=== PATIENT | female | born 1980 | race Caucasian/White ===

== ENCOUNTER → 2019-12-11 11:02 | Outpatient (CLI) | payer OTHER, SELFPAY ==
--- NOTE | ~2019-12-11 | US_ITS ---
EXAMINATION: US thyroid DATE: 12/11/2019 11:18 INDICATION: Thyroid nodule. TECHNIQUE: Multiple ultrasound images of the thyroid were obtained. COMPARISON: None. FINDINGS: The right thyroid lobe measures 5.4 x 1.4 x 1.5 cm. The left thyroid lobe measures 4.4 x 1.3 x 1.2 c m. In the left thyroid lobe, there is a 6 mm solid, hypoechoic, [id number] nodule with smooth m argin without echogenic foci (TI-RADS TR4). IMPRESSION: 1. Small thyroid nodule, likely not clinically significant. No follow-up is needed. Reviewed, dictated and finalized at location A. STANT PROFESSOR OF MATHEMATICS IMPRESSION: 1. Small thyroid nodule, likely not clinically significant. No follow-up is nee ded.
== END ==
PROVIDERS: Visit Provider Internal Medicine Endocrinology, Diabetes & Metabolism
DX: E04.1 Nontoxic single thyroid nodule (principal)
CPT/HCPCS: 76536

== ENCOUNTER → 2020-06-25 07:28 | Outpatient (CLI) | payer OTHER, SELFPAY ==
--- NOTE | ~2020-06-25 | US_ITS ---
EXAMINATION: US pelvic complete DATE: 06/25/2020 07:52 INDICATION: Fibroid uterus. Comparison:12/02/2018 TECHNIQUE: Multiple transabdominal sonographic images of the pelvis performed. FINDINGS: The uterus measures 9.4 x 5.5 x 7 cm. There are multiple uterine fibroids throughout the ut erus. The endometrial complex measures 4 mm. The right ovary measures 3.1 x 1.3 x 2.2 cm and the left ovary measures 3.9 x 2.9 x 3.2 cm. There is a left adnexal cyst measuring 2.7 x 2.2 x 2.1 cm. There is no free fluid in the pelvis. There are no abnormal masses seen on either side. IMPRESSION: 1. Mildly enlarged fibroid uterus. 2: 2.7 cm left ovarian cyst. Reviewed, dictated and finalized at location A.
== END ==
PROVIDERS: Visit Provider Obstetrics & Gynecology Gynecology
DX: D25.9 Leiomyoma of uterus, unspecified (principal); N83.202 Unspecified ovarian cyst, left side
CPT/HCPCS: 76856

== ENCOUNTER → 2020-11-02 08:31 | Outpatient (CLI) | payer OTHER, SELFPAY ==
--- NOTE | ~2020-11-02 | XR_ITS ---
EXAMINATION: XR abdomen/kub 1V DATE: 11/02/2020 09:47 INDICATION: Hematuria. TECHNIQUE: A supine view of the abdomen on 2 radiographs was obtained. COMPARISON: CT abdomen and pelvis 11/02/2020 FINDINGS: There are no dilated loops of bowel. There is no urolithiasis. There are phleboliths in the pelvis. IMPRESSION: 1. No urolithiasis. Reviewed, dictated and finalized at location B. NIGHT HOUSEPERSON IMPRESSION: 1. No urolithiasis.
--- NOTE | ~2020-11-02 | CT_ITS ---
EXAMINATION: CT abdomen pelvis wo/w con DATE: 11/02/2020 09:47 INDICATION: Microscopic hematuria. TECHNIQUE: Computed tomography (CT) of the abdomen and pelvis was performed without and with intraven ous contrast using a total of 130 mL Omnipaque-350 intravenous contrast with a double-bolus technique for simultaneous opacification of the renal parenchyma and renal collecting system. Automated exposu re control and iterative reconstruction technique were employed. The dose-length product was 1186.09 mGy-cm. COMPARISON: CT abdomen and pelvis 01/14/2019 FINDINGS: The visualized portions of the lung bases demonstrate a calcified right lower lobe nodule, consistent with old granulomatous disease. No pleural effusion. The heart size is normal. No pericardial effusi on. The liver, gallbladder, spleen, pancreas, adrenal glands, and kidneys are normal. There is no uro lithiasis. Right ureter is well opacified and is normal. Left ureter is not well-opacified distally, but is normal. The bladder is not well-distended. There is a 13 mm hemorrhagic cyst in the vulva on t he left without change. There are no dilated loops of bowel. The appendix is normal. Vertebral body h eights are normal. There is no free intraperitoneal fluid. The bones are unremarkable. IMPRESSION: 1. No etiology for hematuria. Reviewed, dictated and finalized at location B. SPECIALIST
[2020-11-02 08:51] LABS: Estimated Glomerular Filt Rate > 60
== END ==
PROVIDERS: PCP Emergency Medicine; Visit Provider Urology
DX: R31.29 Other microscopic hematuria (principal)
CPT/HCPCS: 74018; 74178; Q9967

== ENCOUNTER → 2020-11-11 08:05 | Outpatient (CLI) | payer OTHER, SELFPAY ==
--- NOTE | ~2020-11-11 | MMUS_ITS ---
EXAMINATION: MM diagnostic roseanne BI w [place], US breast BI complete HISTORY: Left breast pain and palpable lump nodule TECHNIQUE: Additional 3-D tomosynthesis images of the breasts were performed and synthetic 2-D images were generated. CAD analysis was submitted and interpreted. High resolution complete bilateral breas t ultrasound was performed. COMPARISON: 01/14/2019 BREAST PARENCHYMAL COMPOSITION: The breasts are extremely dense, which lowers the sensitivity of mamm ography. FINDINGS: MAMMOGRAPHIC FINDINGS: There are no suspicious masses or architectural distortion. There are stable benign-appearing bilater al breast calcifications. ULTRASOUND: Bilateral complete breast ultrasound including all 4 quadrants in the subareolar locations: There are multiple bilateral breast cysts. There is a cluster of microcysts in the left breast at 3:00, 6 cm f rom the nipple measuring 7 mm greatest dimension. No suspicious masses to suggest malignancy. IMPRESSION: 1. No evidence for malignancy in either breast. Benign findings. 2. Routine yearly screening mammogram and regular clinical breast examination are recommended. BI-RADS Category 2: Benign finding(s). Reviewed, dictated and finalized at location A. IENCE TRAINER IMPRESSION: 1. No evidence for malignancy in either breast. Benign findings. 2. Routine yearly screening mammogram and regular clinical breast examination a re recommended. BI-RADS Category 2: Benign finding(s).
== END ==
PROVIDERS: PCP Emergency Medicine; Visit Provider Nurse Practitioner
DX: N64.4 Mastodynia (principal)
CPT/HCPCS: 76641; 77062; 77066; G0279

== ENCOUNTER → 2021-11-21 07:52 | Outpatient (CLI) | payer OTHER, SELFPAY ==
--- NOTE | ~2021-11-21 | US_ITS ---
EXAMINATION: US thyroid EXAM DATE: 11/21/2021 08:11 INDICATION: Delmis's thyroiditis TECHNIQUE: Multiple grayscale and Doppler images of the thyroid were obtained (by a technologist who performed the scan) and subsequently reviewed. Individual nodules and recommendations may be reporte d in accordance with TI-RADS system as designated by the 2017 ACR White Paper TI-RADS committee. Comp arison is made to prior examination from 12/11/2019. FINDINGS: The right thyroid lobe measures 5.5 x 1.4 x 1.5 cm, the left measuring 4.4 x 1.3 x 1.5 cm. There is r elatively homogeneous thyroid echogenicity with diffusely hypervascular parenchyma. Several subcentim eter thyroid nodules not significantly changed, largest measuring 7 mm in the left thyroid lobe. IMPRESSION: Mildly enlarged, hypervascular thyroid. Appearance consistent with Delmis's thyroiditi s. Reviewed, dictated and finalized at location B. GER PROGRESSIVE CARE IMPRESSION: Mildly enlarged, hypervascular thyroid. Appearance consistent with Delmis's thyroiditis.
== END ==
PROVIDERS: PCP Emergency Medicine; Visit Provider Emergency Medicine
DX: E06.3 Autoimmune thyroiditis (principal); E04.9 Nontoxic goiter, unspecified
CPT/HCPCS: 76536

== ENCOUNTER → 2021-12-30 07:56 | Outpatient (CLI) | payer OTHER, SELFPAY ==
--- NOTE | ~2021-12-30 | MM_ITS ---
EXAMINATION: MM screening roseanne BI w [place] HISTORY: Screening mammogram TECHNIQUE: Craniocaudal and mediolateral oblique 3-D tomosynthesis images were obtained and synthetic 2-D images were generated. CAD analysis was submitted and interpreted. COMPARISON: 11/11/2020 diagnostic bilateral mammogram and complete bilateral breast ultrasound examina tion BREAST PARENCHYMAL COMPOSITION: The breasts are extremely dense, which lowers the sensitivity of mamm ography. FINDINGS: Scattered bilateral benign calcifications. There is no evidence of suspicious mass, calcifi cation, or architectural distortion to suggest malignancy in either breast. There has been no suspici ous interval change. IMPRESSION: 1. No mammographic evidence of malignancy. 2. Recommend routine screening mammography in one year. BI-RADS Category 2: Benign finding(s). Reviewed, dictated and finalized at location A.
== END ==
PROVIDERS: Visit Provider Obstetrics & Gynecology Gynecology
DX: Z12.31 Encounter for screening mammogram for malignant neoplasm of breast (principal)
CPT/HCPCS: 77063; 77067

== ENCOUNTER → 2022-02-20 08:26 | Outpatient (CLI) | payer OTHER, SELFPAY ==
--- NOTE | ~2022-02-20 | US_ITS ---
US breast BI complete 02/20/2022 09:09 Indication: Family history of breast cancer. Recent negative screening mammogram. Procedure: High-resolution complete bilateral breast ultrasound including all 4 quadrants in the suba reolar location of both breasts. Comparison: Ultrasound dated 11/11/2020 and mammograms dated 12/30/2021 and 11/11/2020 Findings: Right breast: At 3:00, 1 cm from the nipple, there is a 5 mm cyst. At 10:00, 3 cm from the nipple, th ere is a 5 mm cyst. Left breast: At 1:00, 2 cm from the nipple, there is a solid-appearing oval hypoechoic mass with para llel orientation, no internal vascularity and no significant posterior features. This mass measures 1 2 x 6 x 10 mm. At 3:00, 5 cm from the nipple, there is an oval hypoechoic mass measuring 11 x 9 x 3 m m with small internal cysts and possible calcifications. No internal vascularity. There is posterior acoustic enhancement. Impression: 1: Small nonspecific masses of the left breast located at 1:00, 2 cm from the nipple measuring up to 12 mm and 3:00, 5 cm from the nipple measuring up to 11 mm. BI-RADS CATEGORY 4-SUSPICIOUS ABNORMALITY RECOMMENDATION: Ultrasound-guided left breast biopsies recommended given the family history of breast cancer. Reviewed, dictated and finalized at location A. Impression: 1: Small nonspecific masses of the left breast located at 1:00, 2 cm from the n ipple measuring up to 12 mm and 3:00, 5 cm from the nipple measuring up to 11 m m. BI-RADS CATEGORY 4-SUSPICIOUS ABNORMALITY RECOMMENDATION: Ultrasound-guided left breast biopsies recommended given the fa chavez history of breast cancer.
== END ==
PROVIDERS: PCP Emergency Medicine; Visit Provider Nurse Practitioner
DX: R92.8 Other abnormal and inconclusive findings on diagnostic imaging of breast (principal); N63.25 Unspecified lump in the left breast, overlapping quadrants; N60.01 Solitary cyst of right breast
CPT/HCPCS: 76641

== ENCOUNTER 2023-11-09 19:47 | Emergency (ER) | payer OTHER, SELFPAY ==
--- NOTE | 2023-11-09 19:56 | ECG_ITS ---
Measurements Intervals [place] Rate: 91 P: 80 [place]: 121 QRS: 82 QRSD: 84 T: 49 QT: 330 QTc: 406 Interpretive Statements SINUS RHYTHM MINIMAL Q WAVES- ANTEROLAT/INF LEADS BASELINE ARTIFACT- I, II, III, AVR, AVL, AVF BORDERLINE ECG NO PREVIOUS ECG AVAILABLE FOR COMPARISON Electronically Signed On 11-10-2023 7:58:21 SILICA MIXER OPERATOR by Umesh Hollingsworth D.O.
[2023-11-09 19:57] VITALS: BP 98/62; PULSE 111; RESP 16; TEMP 37.2; O2SAT 100
[2023-11-09] MEDS: MAG HYDROX/AL HYDROX/SIMETH 30 ML UDC PO (20:02)
[2023-11-09] MEDS: LIDOCAINE HCL 2% VISC SOLN 15 ML UDC PO (20:03)
--- NOTE | 2023-11-09 20:03 | ED.ABDPAIN ---
HPI - Abdominal Pain General Chief Complaint: Chest Pain Stated Complaint: CHEST PAIN/REFLUX Time Seen by Provider: 11/09/23 19:56 Source: patient and RN notes reviewed Mode of arrival: ambulatory Limitations: no limitations History of Present Illness HPI narrative: 43-year-old female presents with concern for epigastric pain. She reports that symptoms started this morning. She reports a burning sensation, reports belching. She reports she had been taking pantoprazole and Pepcid recently for reflux, reports she stopped taking it the last 2 days. Reports she took it this morning when her symptoms returned. She denies nausea, vomiting, diarrhea. Reports her these medications are prescribed by her primary care doctor, she has not seen a GI doctor. She denies cough, shortness of breath, left-sided checked pain, left arm pain MD elicited complaint: abdominal pain Related Data Home Medications Medication Instructions Recorded Confirmed famotidine 20 mg tablet 20 mg PO DAILY 11/09/23 11/09/23 lisdexamfetamine 30 mg capsule 30 mg PO DAILY 11/09/23 11/09/23 (Vyvanse) pantoprazole 40 mg tablet,delayed 40 mg PO DAILY 11/09/23 11/09/23 release Allergies Allergy/AdvReac Type Severity Reaction Status Date / Time No Known Allergies Allergy Mild Verified 11/09/23 19:57 Review of Systems Review of Systems: CONSTITUTIONAL: Denies malaise, chills, sweats, or fever. CARDIOVASCULAR: Denies chest pain, palpitations, or edema. RESPIRATORY: Denies cough or dyspnea. GASTROINTESTINAL: Reports epigastric abdominal pain and burning, belching. Denies nausea, vomiting, diarrhea, bloody, or mucous stools. MUSCULOSKELETAL: Denies myalgia. NEUROLOGIC: Denies headache. All systems reviewed & are unremarkable except as noted in HPI and below PMFSH Family History Family History Mother Hypertension Family history of malignant neoplasm of breast in first degree relative Social History Social History (Updated 12/10/22 @ 09:39 by Haritha Lee MA) Smoking status: Never smoker Lack of Transportation: No Lack of Food: Never True Current Housing: I Have Housing Concerned About Future Housing: No Difficulty Paying Gas/Electric Bills: No Difficulty Paying for Meds: No Currently Unemployed: No Education: Master's Degree or Higher Difficulty w/ Childcare or Family Care: No Comments At time of signature, agree with nursing past medical, surgical, social and family history. There is no relevant family history pertinent to the presenting complaint Exam Narrative: GENERAL: Well-appearing, well-nourished, and in no acute distress. HEAD: Normocephalic, atraumatic. EYES: PERRLA, conjunctivae clear, and EOMI. ENT: Nares clear, no rhinorrhea or epistaxis. Mucous membranes moist. Oropharynx without edema, erythema, or lesions. Tonsils not enlarged and without exudate. NECK: Supple. No lymphadenopathy CHEST: Speaks in full sentences. No respiratory distress. HEART: Regular rate and rhythm. ABDOMEN: Soft, flat, nondistended, nontender. No guarding, rebound tenderness, or rigidity. No pulsatile masses. Bowel sounds present in all four quadrants. No organomegaly. Negative Dhaliwal?s sign. No periumbilical tenderness. No Supra public tenderness or distension SKIN: Warm, dry, no rash. NEURO: Alert and oriented x3. PSYCH: Normal mood and affect Course Course Emergency Course: Patient is aware of, understands and agrees to treatment plan. Anticipatory guidance given. Patient agrees to follow-up as directed and is aware of reasons to seek care at the emergency department. Portions of this record may have been created with voice recognition software Level of Care: Express Care Visit Reevaluation(s) Reevaluation #1: Patient given GI cocktail, reports relief of esophageal burning. She reports her stomach still feels uncomfortable. Date: 11/09/23 Time: 20:16 Vital
--- NOTE | 2023-11-09 20:11 | PC.NURSE ---
2011 EKG completed, patient sitting in chair at this time; reports numbness to throat etc.
== END 2023-11-09 20:20 | disposition home or self-care (01) ==
PROVIDERS: Emergency Provider Nurse Practitioner; PCP Emergency Medicine
DX: R10.13 Epigastric pain (principal)
CPT/HCPCS: 93005; 99213; A9270; G0463

== ENCOUNTER 2023-11-10 07:25 | Emergency (ER) | payer OTHER, SELFPAY ==
--- NOTE | ~2023-11-10 | XR_ITS ---
EXAMINATION: XR chest 1V portable 11/10/2023 07:48 INDICATION: Chest pain. PROCEDURE: AP portable chest COMPARISON: 10/25/2019 FINDINGS: The lungs are clear. The lungs are hyperinflated which is consistent with, but not diagnost ic of chronic obstructive pulmonary disease. The cardiomediastinal silhouette is within normal limits . There are no pleural effusions. There is no pneumothorax suspected. IMPRESSION: 1: NO ACUTE CARDIOPULMONARY DISEASE. Reviewed, dictated and finalized at location A. LITIES ENGINEER
--- NOTE | 2023-11-10 07:29 | ECG_ITS ---
Measurements Intervals [place] Rate: 80 P: 81 CT: 119 QRS: 77 QRSD: 84 T: 58 QT: 332 QTc: 383 Interpretive Statements SINUS RHYTHM WITH SHORT CT INTERVAL POSSIBLE LEFT ATRIAL ENLARGEMENT LOW QRS VOLTAGE IN PRECORDIAL LEADS MINIMAL Q WAVES- INF/LAT LEADS BORDERLINE ECG COMPARED TO ECG 11/09/2023 20:07:18 NO SIGNIFICANT CHANGES Electronically Signed On 11-10-2023 11:29:04 TIME LOCK EXPERT by Umesh Hollingsworth D.O.
--- NOTE | 2023-11-10 07:54 | ED.GENADULT ---
HPI - General Adult General Chief complaint: Unspecified Stated complaint: heartburn Time Seen by Provider: 11/10/23 07:29 History of Present Illness HPI narrative: 43-year-old female with history of gastric reflux started approximately 2 months ago presented to the ED for evaluation of worsening epigastric and left upper quadrant pain. Patient states over last 24 hours she has had pretty persistent upper abdominal pain and pain with swallowing. Patient did have follow-up with urgent care yesterday and was treated with a GI cocktail and had an EKG. Patient states that the symptoms persisted this morning so she presented to the ED for evaluation. The patient states that she did have a negative H pylori study done approximately 2 weeks ago Patient is declining IV access IV labs and any additional workup. Patient prefers just to try the p.o. meds and see if those help. Related Data Home Medications Medication Instructions Recorded Confirmed famotidine 20 mg tablet 20 mg PO DAILY 11/09/23 11/09/23 lisdexamfetamine 30 mg capsule 30 mg PO DAILY 11/09/23 11/09/23 (Vyvanse) pantoprazole 40 mg tablet,delayed 40 mg PO DAILY 11/09/23 11/09/23 release Allergies Allergy/AdvReac Type Severity Reaction Status Date / Time No Known Allergies Allergy Mild Verified 11/10/23 07:37 Review of Systems Review of Systems: All systems reviewed & are unremarkable except as noted in HPI and below PMFSH Family History Family History Mother Hypertension Family history of malignant neoplasm of breast in first degree relative Social History Social History (Updated 12/10/22 @ 09:39 by Haritha Lee MA) Smoking status: Never smoker Lack of Transportation: No Lack of Food: Never True Current Housing: I Have Housing Concerned About Future Housing: No Difficulty Paying Gas/Electric Bills: No Difficulty Paying for Meds: No Currently Unemployed: No Education: Master's Degree or Higher Difficulty w/ Childcare or Family Care: No Exam Narrative: APPEARANCE: Well appearing, no pain, no distress, well-nourished. HEAD: normocephalic, atraumatic. EYES: PERRLA/EOMI, conjunctivae clear. NOSE: Normal no drainage EARS:TMS clear with good light reflex. THROAT: Pharynx clear, no exudate. NECK: Supple. No adenopathy, no masses. RESPIRATORY: Airway patent, respirations nonlabored. Clear to auscultation bilaterally, no rales, rhonchi, wheezing. CARDIOVASCULAR: Regular rate and rhythm without murmurs rubs or gallops. ABDOMINAL: Epigastric and left upper quadrant tenderness to palpation, no rebound, no guarding MUSCULOSKELETAL: Moves all extremities. Strength/ROM intact, No edema, No calf tenderness. NEURO: Alert. Cranial nerves II through XII intact. Grossly intact SKIN: Warm, dry. Normal Color Course Course Emergency Course: 43-year-old female presenting to the ED for evaluation of increased epigastric pain. Patient declined IV or labs. Patient was willing to try the GI cocktail. Patient ultimately agreed to labs but declined any imaging. Patient was updated on the results of her workup and patient states she is still having some abdominal pain. Patient declined any CT imaging declined admission or medications for pain control. Patient is interested in having outpatient follow-up with GI. Patient was also updated on reasons to return to the emergency department. All questions concerns were addressed. Vital Signs Vital signs: Vital Signs Respiratory Rate 20 11/10/23 10:53 Blood Pressure 108/74 11/10/23 10:53 Pulse Oximetry 99 11/10/23 10:53 Respiratory Rate 11/10/23 10:53 Blood Pressure 108/74 11/10/23 10:53 Pulse Oximetry 99 11/10/23 10:53 Medical Decision Making Differential Diagnosis Differential Diagnosis: Pancreatitis, gastritis, esophagitis Vital Signs Vital Signs: Vital Signs Respiratory Rate
[2023-11-10] MEDS: BELLADONNA ALK/PHENOB ELIX 10 ML, MAG HYDROX/ALUMINUM HYD/SIMETH 30 ML, LIDOCAINE HCL 2... PO (08:22)
[2023-11-10 08:54] LABS: Basophils Absolute Auto 0.1 K/mm3 (0.0-0.1); Basophils Percent Auto 0.5 % (0.2-1.2); Eosinophils Absolute Auto 0.2 K/mm3 (0-0.3); Eosinophils Percent Auto 1.4 % (0-4.4); Hematocrit 39.8 % (37.0-47.0); Hemoglobin 12.7 g/dL (12.0-15.0); Immature Granulocyte Absolute 0.03 K/mm3 (0.00-0.031); Immature Granulocyte Percent A 0.3 % (0-0.5); Lymphocytes Absolute Auto 2.43 K/mm3 (0.9-3.2); Lymphocytes Percent Auto 22.2 % (18.3-44.2); Mean Corpuscular HGB Conc 31.9 g/dl (32-36); Mean Corpuscular Hemoglobin 30.5 pg (26-34); Mean Corpuscular Volume 95.4 fl (80-100); Mean Platelet Volume 9.7 fl (7.4-10.4); Monocytes Absolute Auto 0.8 K/mm3 (0.1-0.6); Neutrophils Absolute Auto 7.5 K/mm3 (1.3-6.7); Neutrophils Percent Auto 68.6 % (45.5-73.1); Platelet Count Result 272 k/mm3 (150-375); Red Blood Count 4.17 M/mm3 (4.2-5.4); Red Cell Distribution Width 13.1 % (11.5-14.5); White Blood Count 10.9 K/mm3 (4.5-10.0)
[2023-11-10] MEDS: PANTOPRAZOLE SODIUM IV 40 MG VIAL IV PUSH (08:57)
[2023-11-10 09:08] LABS: Alanine Aminotransferase 12 U/L (6-35); Alkaline Phosphatase 44 U/L (38-126); Anion Gap 5 mmol/L (8-16); Aspartate Amino Transferase 16 U/L (14-36); Blood Urea Nitrogen 8 mg/dL (7-17); Calcium 9.1 mg/dL (8.4-10.2); Carbon Dioxide 31 mmol/L (22-30); Chloride 103 mmol/L (98-107); Estimated CRCL calculation 83 ml/min; Estimated Glomerular Filt Rate > 60; Glucose 106 mg/dL (65-110); Lipase 40 U/L (23-300); Sodium 139 mmol/L (137-145)
[2023-11-10 09:17] LABS: Appearance Urine Clear (Clear); Bacteria Urine None Seen /hpf; Bilirubin Urine Negative (Negative); Blood Urine Trace (Negative); Color Urine Yellow (Yellow); Glucose Urine UA Negative (Negative); Ketones Urine Negative (Negative); Leukocyte Esterase Ur 1+ LEU/UL (Negative); Need Manual Microscopic Reviewed; Nitrate Urine Negative (Negative); Non Pathogenic Casts 0-2; Protein Urine Negative (Negative); RBC Urine 0-2 /hpf (0-2); Specific Grav Ur 1.005 (1.001-1.035); Squamous Epithelial Cell Urine None seen /hpf (Few); Urobilinogen Urine 0.2 mg/dL (<2.0); WBC Urine 0-5 /hpf
[2023-11-10 09:19] LABS: Add Urine Microscopic? YES
[2023-11-10 10:53] VITALS: BP 108/74; RESP 20; O2SAT 99
== END 2023-11-10 10:54 | disposition home or self-care (01) ==
PROVIDERS: Emergency Provider Emergency Medicine; PCP Emergency Medicine
DX: R10.13 Epigastric pain (principal); K21.9 Gastro-esophageal reflux disease without esophagitis
CPT/HCPCS: 36415; 71045; 80053; 81001; 83690; 85025; 93005; 96374; 99284; A9270; C9113

== ENCOUNTER 2024-06-07 15:03 | Emergency (ER) | payer OTHER, SELFPAY ==
[2024-06-07 15:21] VITALS: BP 100/77; PULSE 126; RESP 16; TEMP 37.4; O2SAT 98
--- NOTE | 2024-06-07 15:24 | ED.GENADULT ---
HPI - General Adult General Chief complaint: Upper Respiratory Infection Stated complaint: RUNNY NOSE/COUGH/BODY ACHES Time Seen by Provider: 06/07/24 15:24 Source: patient Mode of arrival: ambulatory Limitations: no limitations History of Present Illness HPI narrative: 44-year-old female patient presents to the [facility] with complaints of body aches and chills since yesterday. Patient states she has had congestion and a sore throat just overall not feeling well. Patient states she had COVID about 2 years ago but states the symptoms are much worse than when she had COVID in the past. Patient states she has been taking Tylenol for her symptoms Related Data Home Medications Medication Instructions Recorded Confirmed bupropion HCl 150 mg 24 hr tablet, 150 mg PO DAILY 06/07/24 06/07/24 extended release ergocalciferol (vitamin D2) 1,250 1,250 mcg PO WEEKLY 06/07/24 06/07/24 mcg (50,000 unit) capsule Allergies Allergy/AdvReac Type Severity Reaction Status Date / Time No Known Allergies Allergy Mild Verified 06/07/24 15:26 Review of Systems Review of Systems: CONSTITUTIONAL: positive fever, body aches and chills, or sweats. EYES: Denies visual changes, redness, or discharge. ENT: positive rhinorrhea, congestion, sore throat, denies otalgia. CARDIOVASCULAR: Denies chest pain, palpitations, or edema. RESPIRATORY: positive cough, denies dyspnea. GASTROINTESTINAL: Denies abdominal pain, nausea, vomiting, or diarrhea. GENITOURINARY: Denies dysuria or hematuria. SKIN: Denies rash or itching. MUSCULOSKELETAL: Denies back pain, joint pain, or myalgia. NEUROLOGIC: Denies headache, numbness, or weakness. PSYCHIATRIC: Denies anxiety or depression. [facility] Past Medical History Medical History Chronic urticaria GERD (gastroesophageal reflux disease) Screening for colon cancer Family History Family History Mother Hypertension Family history of malignant neoplasm of breast in first degree relative Social History Social History Smoking status: Never smoker Lack of Transportation: No Lack of Food: Never True Current Housing: I Have Housing Concerned About Future Housing: No Difficulty Paying Gas/Electric Bills: No Difficulty Paying for Meds: No Currently Unemployed: No Education: Master's Degree or Higher Difficulty w/ Childcare or Family Care: No Comments At the time of my signature I agree with nursing past medical history, surgical, social, and family history. There is no relevant family history pertinent to the presenting complaint. Exam Narrative: GENERAL: ill-appearing, well-nourished, and in no acute distress. HEAD: Normocephalic, atraumatic. EYES: PERRLA and EOMI. ENT: Nares with erythema edema noted bilaterally, no rhinorrhea or epistaxis. Mucous membranes moist. posterior pharynx with no erythema, tonsillar enlargement, exudates or lesions present. Bilateral TMs are clear no erythema foreign bodies canal. NECK: Supple. No lymphadenopathy CHEST: Clear to auscultation. No respiratory distress. HEART: Regular rate and rhythm. No murmur heard. Normal peripheral pulses. ABDOMEN: Soft, nontender, nondistended, normal active bowel sounds. EXTREMITIES: Normal range of motion. No edema. SKIN: Warm, dry, no rash. NEURO: No focal deficits. Alert and oriented x3. Course Course Level of Care: Express Care Visit Vital Signs Vital signs: Vital Signs Temperature 37.4 C 06/07/24 15:21 Pulse Rate 126 H 06/07/24 15:21 Respiratory Rate 16 06/07/24 15:21 Blood Pressure 100/77 06/07/24 15:21 Pulse Oximetry 98 06/07/24 15:21 Oxygen Delivery Room Air 06/07/24 15:21 Temperature 37.4 C 06/07/24 15:21 Pulse Rate 126 H 06/07/24 15:21 Respiratory Rate 16 06/07/24 15:21 Blood Pressure 100/77
[2024-06-07 15:42] LABS: EDINFLUASCREEN Negative; EDINFLUBSCREEN Negative; EDSTREPNEGPOS1 Negative
== END 2024-06-07 15:45 | disposition home or self-care (01) ==
PROVIDERS: Emergency Provider Nurse Practitioner Family; PCP Emergency Medicine
DX: U07.1 COVID-19 (principal); K21.9 Gastro-esophageal reflux disease without esophagitis
CPT/HCPCS: 87081; 87426; 87804; 87880; 99213; G0463

== ENCOUNTER 2024-08-06 16:47 | Outpatient (CLI) | payer OTHER, SELFPAY ==
[2024-08-06 17:28] LABS: Troponin I < 0.012 ng/mL (0.000-0.034)
== END 2024-08-06 16:48 | disposition home or self-care (01) ==
LOC: ANHLAB 16:50
PROVIDERS: PCP Emergency Medicine; Visit Provider Emergency Medicine
DX: R07.89 Other chest pain (principal)
CPT/HCPCS: 36415; 84484

== ENCOUNTER 2024-09-15 08:44 | Outpatient (CLI) | payer OTHER, SELFPAY ==
--- NOTE | 2024-09-15 | EST_ITS ---
Patient Info Name: Rigoberto Connelly Age: 44 years : 1980 Gender: Female Ht: 62 in Wt: 123 lbs BSA: 1.57 m2 Technical Quality: Good Exam Date: 09/15/2024 9:32 AM Exam Location: Echo Lab Patient Status: Outpatient Admit Date: 09/15/2024 Staff Ordering Physician: Jose Martins MD Court Assistant: Paige Loera RDCS Attending Provider: Jose Martins MD Referring Physician: Eliezer ROMAN; Exercise Technologist: Amanda Callejas RDCS Exercise Physician: Umesh Hollingsworth DO Exam Type: CA stress echo Study Info Indications R07.9 - Chest pain, unspecified Treadmill exercise stress echocardiogram is performed. Summary 1. 1. Negative Michele exercise stress test for ischemic ST changes by ECG criteria. 2. 2. Good functional capacity, achieving 9.8 METs of workload. 3. 3. Appropriate HR response to exercise. 4. 4. Appropriate HR recovery at 1 minute post exercise. 5. 5. Negative stress echocardiogram for ischemia by wall motion analysis. 6. 6. Patient informed of the above results. Stress Echo Findings Left Ventricle Appropriate increase in LV endocardial thickening with systole. Appropriate augmentation of contractility with systole. No wall motion abnormality. Left Ventricle Normal LV systolic function, no wall motion abnormality. Protocol: Michele Stress ECG Details Stage: REST Duration (min): 1 min : 13 sec Speed (mph): 0.0 Grade (%): 0 HR (bpm): 81 SBP (mmHg): --- DBP (mmHg): --- METS: --- Stage: REST Duration (min): 1 min : 36 sec Speed (mph): 0.0 Grade (%): 0 HR (bpm): 78 SBP (mmHg): 96 DBP (mmHg): 62 METS: --- Stage: REST Duration (min): 27 min : 44 sec Speed (mph): 0.0 Grade (%): 0 HR (bpm): 97 SBP (mmHg): 96 DBP (mmHg): 62 METS: --- Stage: STAGE 1 Duration (min): 1 min : 0 sec Speed (mph): 1.7 Grade (%): 10 HR (bpm): 108 SBP (mmHg): 96 DBP (mmHg): 62 METS: --- Stage: STAGE 1 Duration (min): 2 min : 0 sec Speed (mph): 1.7 Grade (%): 10 HR (bpm): 116 SBP (mmHg): 96 DBP (mmHg): 62 METS: --- Stage: STAGE 1 Duration (min): 3 min : 0 sec Speed (mph): 1.7 Grade (%): 10 HR (bpm): 124 SBP (mmHg): 116 DBP (mmHg): 59 METS: --- Stage: STAGE 2 Duration (min): 1 min : 0 sec Speed (mph): 2.5 Grade (%): 12 HR (bpm): 131 SBP (mmHg): 116 DBP (mmHg): 59 METS: --- Stage: STAGE 2 Duration (min): 2 min : 0 sec Speed (mph): 2.5 Grade (%): 12 HR (bpm): 135 SBP (mmHg): 134 DBP (mmHg): 63 METS: --- Stage: STAGE 2 Duration (min): 3 min : 0 sec Speed (mph): 2.5 Grade (%): 12 HR (bpm): 141 SBP (mmHg): 134 DBP (mmHg): 63 METS: --- Stage: STAGE 3 Duration (min): 1 min : 0 sec Speed (mph): 3.4 Grade (%): 14 HR (bpm): 153 SBP (mmHg): 134 DBP (mmHg): 67 METS: --- Stage: STAGE 3 Duration (min): 1 min : 40 sec Speed (mph): 0.0 Grade (%): 0 HR (bpm): 162 SBP (mmHg): 134 DBP (mmHg): 67 METS: --- Stage: RECOVERY Duration (min): 0 min : 19 sec Speed (mph): 0.0 Grade (%): 0 HR (bpm): 149 SBP (mmHg): 134 DBP (mmHg): 67 METS: --- Stage: RECOVERY Duration (min): 1 min : 19 sec Speed (mph): 0.0 Grade (%): 0 HR (bpm): 127 SBP (mmHg): 134 DBP (mmHg): 67 METS: --- Stage: RECOVERY Duration (min): 2 min : 19 sec Speed (mph): 0.0 Grade (%): 0 HR (bpm): 111 SBP (mmHg): 123 DBP (mmHg): 68 METS: --- Stage: RECOVERY Duration (min): 3 min : 4 sec Speed (mph): 0.0 Grade (%): 0 HR (bpm): 99 SBP (mmHg): 130 DBP (mmHg): 70 METS: --- Rest HR: 97 bpm Peak HR: 162 bpm Rest Sys BP: 96 mmHg Peak Sys BP: 134 mmHg Max Pred HR: 174 bpm % Max Pred HR: 93 % Target HR: 148 bpm Max RPP: 21,708 bpm*mmHg Chairez Score: 1 Termination Reason: Reached target heart rate or workload Cardiac Symptoms: Shortness of breath Max ST Seg Deviation: -1.40 mm Total Time: 7 min : 40 sec Rest Resendez BP: 62 mmHg Peak Resendez BP: 67 mmHg Angina Score: None Total METS: 9.8 Resting ECG Sinus rhythm. Stress ECG No ST changes. Arrhythmias None. Report Signatures Stress ECG Echo
== END 2024-09-15 08:45 | disposition home or self-care (01) ==
LOC: ANHCARD 08:46
PROVIDERS: PCP Emergency Medicine; Visit Provider Emergency Medicine
DX: R07.89 Other chest pain (principal)
CPT/HCPCS: 93351

== ENCOUNTER 2024-12-27 17:12 | Emergency (ER) | payer OTHER, SELFPAY ==
--- NOTE | ~2024-12-27 | XR_ITS ---
EXAM: XR knee LT 3V DATE: 12/27/2024 17:29 HISTORY: fall, pain . COMPARISON: None available. FINDINGS: Normal mineralization. No fracture or dislocation. No lytic or blastic lesion. Joint space s are maintained. No erosion or periosteal change. Trace joint fluid. Mild anterior soft tissue swell ing. IMPRESSION: No acute osseous finding in the left knee. Reviewed, dictated and finalized at location K.
--- NOTE | 2024-12-27 17:13 | ED.LOWEXIN ---
HPI - Extremity Injury (Lower) General Chief Complaint: Extremity Injury, Lower Stated Complaint: Left Knee Pain Time Seen by Provider: 12/27/24 17:13 Source: patient Mode of arrival: ambulatory Limitations: no limitations History of Present Illness HPI Narrative: Patient is a 44-year-old female who presents with left knee pain after falling on escalator and knee hitting the corner of a step. Incident happened yesterday. Patient denies any swelling. Patient able to ambulate normally. Has taken Tylenol and ibuprofen. Related Data Home Medications ?Medication ?Instructions ?Recorded ?Confirmed ?Last Taken ?Type ergocalciferol (vitamin D2) 1,250 1,250 mcg PO WEEKLY 06/07/24 06/07/24 Unknown History mcg (50,000 unit) capsule bupropion HCl 150 mg tablet,12 hr mg PO 12/27/24 Unknown History sustained-release pantoprazole 40 mg tablet,delayed mg PO 12/27/24 Unknown History release Allergies Allergy/AdvReac Type Severity Reaction Status Date / Time No Known Allergies Allergy Mild Verified 12/27/24 17:18 Review of Systems Review of Systems: All systems reviewed & are unremarkable except as noted in HPI and below Constitutional: Constitutional: Denies body ache(s), Denies chills, Denies fatigue, Denies fever(s), Denies headache(s), Denies malaise and Denies weakness Eyes: Eyes: Denies blurry vision, Denies irritation and Denies loss of vision ENT: Denies otalgia, Denies headache(s), Denies nasal discharge, Denies sinus pain and Denies sore throat Cardiovascular: Cardiovascular: Denies chest pain, Denies irregular heart rhythm and Denies dyspnea Respiratory: Respiratory: Denies dyspnea Gastrointestinal: Gastrointestinal: Denies abdominal pain, Denies melena, Denies hematochezia, Denies diarrhea, Denies nausea and Denies vomiting Musculoskeletal: Musculoskeletal: Denies back pain, Denies myalgias and Reports arthralgias Integumentary/Breasts: Skin/Breast: Denies pruritus and Denies rash Neurologic: Denies headache(s), Denies loss of vision and Denies weakness Psychiatric: Psychiatric: Reports no additional psychiatric complaints Endocrine: Endocrine: Denies fatigue PMFSH Past Medical History Medical History Chronic urticaria Screening for colon cancer GERD (gastroesophageal reflux disease) Family History Family History Mother Hypertension Family history of malignant neoplasm of breast in first degree relative Social History Social History Smoking status: Never smoker Lack of Transportation: No Lack of Food: Never True Current Housing: I Have Housing Concerned About Future Housing: No Difficulty Paying Gas/Electric Bills: No Difficulty Paying for Meds: No Currently Unemployed: No Education: Master's Degree or Higher Difficulty w/ Childcare or Family Care: No Comments At time of signature, agree with nursing past medical, surgical, social and family history. There is no relevant family history pertinent to the presenting complaint. Exam Const: General: cooperative, healthy appearing, comfortable, no acute distress and well nourished Nutritional Appearance: well nourished Orientation/consciousness: patient oriented x3 Limitations: no limitations HENMT: Head: normal to inspection, normocephalic and atraumatic Ears: hearing grossly normal bilaterally and external ears normal Face/Nose/Sinus: Normal external nose present, normal facial exam and face symmetric Face and sinus: normal facial exam and face symmetric Mouth: Yes lip normal Eyes: General: appearance normal, both eyes and all related structures Alignment and Position: alignment normal and position normal Periorbital: periorbital findings normal Eyelids: eyelids normal Pupils: Equal, round and reactive pupils present EOM: EOMs intact bilaterally Neck: Neck: normal visual inspection, full ROM and supple Chest: Chest palpation & inspection: normal inspection of the chest Resp: Effort & Inspection: normal respiratory effort and able to speak in complete sentences Auscultation: clear to auscultation bilaterally Cardio: Rate: regular rate Rhythm: regular rhythm Heart sounds: S1 normal heart sound present and S2 normal heart sound present GI: Inspection: normal to inspection Skin: General skin exam: normal color and no rashes or lesions noted Neuro: General: patient oriented x3 and moves all extremities Cranial nerves: Yes Equal, round and reactive pupils present Speech: normal speech Gait exam (Neuro): Normal gait present Extrem: General: normal to inspection, full ROM and no edema Left lower extremity: normal capillary refill, hip/thigh Details: normal to inspection and normal ROM; no tenderness and no swelling, knee Details: normal to inspection, tenderness Location: of the infrapatellar area, swelling Location: of the infrapatellar area (mild), abnormal ROM Details: pain with active ROM Details: with extension and with flexion and ecchymosis knee anterior ; no deformity and no unusual warmth and lower leg Details: normal to inspection; no tenderness, no localized swelling and no unusual warmth Psych: Appearance: grossly normal and well kempt Mental Status: mental status grossly normal Speech and movement: Normal speech and movement present Affect: normal affect Attitude: cooperative Thought process: Normal thought process present Course Course Emergency Course: Patient is aware of diagnosis, understands and agrees to treatment plan. Anticipatory guidance given. Patient agrees to follow-up as directed and is aware of reasons to seek care at the emergency department. Portions of this record may have been created with voice recognition software Level of Care: Express Care Visit Vital Signs Vital signs: Reviewed MDM - Extremity Injury (Lower) MDM Narrative Medical decision making narrative: aleks wrap applied Pt well hydrated appearing, in no respiratory distress, hemodynamically stable. Recommend supportive care. The patient is stable at time of discharge the clinical impression was discussed and the patient was given the opportunity to ask questions, which were addressed as completely as possible given the information available at present. Anticipatory guidance and return to care precautions were discussed and the importance of primary care follow-up was stressed and encouraged. The patient voiced understanding of the plan, indications to return, and the need for follow-up. Exam findings show no acute concerns or changes Patient is appropriate for outpatient treatment and follow-up. Differential Diagnosis Differential diagnosis: Likely acute internal derangement of knee and other (Knee contusion less likely femur fracture, tibial plateau fracture) Medical Records Attestation: I reviewed the patient's medical records. Imaging Data Radiologist's impression: EXAM: XR knee LT 3V DATE: 12/27/2024 17:29 HISTORY: fall, pain . COMPARISON: None available. FINDINGS: Normal mineralization. No fracture or dislocation. No lytic or blastic lesion. Joint spaces are maintained. No erosion or periosteal change. Trace joint fluid. Mild anterior soft tissue swelling. IMPRESSION: No acute osseous finding in the left knee. Discharge Plan Discharge Clinical Impression: Knee sprain Qualifiers: Encounter type: initial encounter Involved ligament of knee: unspecified ligament Laterality: left Qualified Code(s): S83.92XA - Sprain of unspecified site of left knee, initial encounter Contusion of knee Qualifiers: Encounter type: initial encounter Laterality: left Qualified Code(s): S80.02XA - Contusion of left knee, initial encounter Patient Disposition: Home, Self-Care Condition: Stable Instructions: Knee Sprain (ED) Additional Instructions: Xray showed no fracture. Minimize activities that aggravate the condition The RICE protocol. Follow the RICE protocol as soon as possible after your injury: Rest your knee by not walking on it. Ice should be immediately applied to keep the swelling down. It can be used for 20 to 30 minutes, three or four times daily. Do not apply ice directly to your skin. Compression dressings, bandages or aleks-wraps will immobilize and support your injured knee. Elevate your knee above the level of your heart as often as possible during the first 48 hours. Medication: Nonsteroidal anti-inflammatory drugs (NSAIDs) such as ibuprofen and naproxen can help control pain and swelling. Because they improve function by both reducing swelling and controlling pain, they are a better option for mild sprains than narcotic pain medicines. Please schedule a follow-up visit with your personal physician for further evaluation and treatment within 1week OR If your symptoms persist, change or worsen significantly before you can contact your personal physician then please, without delay, go to the emergency department for further evaluation. Patient Language: Yakut Prescriptions: No Action ergocalciferol (vitamin D2) 1,250 mcg (50,000 unit) capsule 1,250 mcg PO WEEKLY bupropion HCl 150 mg tablet sustained-release 12 hr PO pantoprazole 40 mg tablet,delayed release (DR/EC) PO Follow-up/Referrals: Willie Richardson MD [Physician] - 1 Week Stand Alone Forms: Work/School Release IP Time of Disposition: 17:53
[2024-12-27 17:21] VITALS: BP 111/78; PULSE 83; RESP 16; TEMP 37.1; O2SAT 100
== END 2024-12-27 17:54 | disposition home or self-care (01) ==
PROVIDERS: Emergency Provider Nurse Practitioner Family
DX: S83.92XA Sprain of unspecified site of left knee, initial encounter (principal); S80.02XA Contusion of left knee, initial encounter; W10.0XXA Fall (on)(from) escalator, initial encounter; K21.9 Gastro-esophageal reflux disease without esophagitis
CPT/HCPCS: 73562; 99213; G0463